=== PATIENT | male | born 1940 | race Caucasian/White ===

== ENCOUNTER 2020-06-17 14:44 | Emergency (ER) | payer OTHER, BC ==
[2020-06-17 14:55] VITALS: BMI 29.2
[2020-06-17 17:02] LABS: BASO % 0.5 % (0-2.0); EOS % 0.5 % (0-4.5); HEMOGLOBIN 13.7 GM/dL (11.7-16.9); LYMPH % 36.9 % (8-40); MCH 30.7 pg (25.7-33.7); MCHC 33.3 g/dl (32.0-35.9); MEAN CELL VOLUME 92.1 fl (80-96); MEAN PLT VOLUME 8.5 fl (7.5-11.1); MONO % 7.4 % (3.8-10.2); NEUT % 54.7 % (42.8-82.8); PLATELET COUNT 225 K/MM3 (134-434); RBC 4.45 M/mm3 (4.00-5.60); RDW 13.7 % (11.9-15.9); WHITE BLOOD COUNT 5.9 K/mm3 (4.0-10.0)
[2020-06-17 17:12] LABS: INR 3.06 (0.83-1.09); PROTHROMBIN TIME (PATIENT) 36.4 SEC (9.7-13.0)
[2020-06-17 17:15] LABS: ACTIVATED PTT 46.7 SECONDS (25.2-36.5)
[2020-06-17 17:20] LABS: POTASSIUM 4.1 mmol/L (3.5-5.1)
[2020-06-17 17:21] LABS: CALCIUM 8.8 mg/dL (8.5-10.1)
[2020-06-17 17:22] LABS: ALBUMIN 4.4 g/dl (3.4-5.0)
[2020-06-17 17:27] LABS: BILIRUBIN,TOTAL 0.4 mg/dL (0.2-1); BLOOD UREA NITROGEN 20.5 mg/dL (7-18); CREATININE 0.8 mg/dL (0.55-1.3); TOT PROT 7.3 g/dl (6.4-8.2)
[2020-06-17 19:27] LABS: EPI CELLS 2 /uL (0-25.1); HYALINE CASTS 10 /uL (0-3.1); URINE APPEARANCE CLOUDY; URINE BACTERIA 3 /uL (0-1359); URINE BILIRUBIN NEGATIVE (NEGATIVE); URINE COLOR ORANGE; URINE GLUCOSE (UA) NEGATIVE (NEGATIVE); URINE KETONE NEGATIVE (NEGATIVE); URINE LEUK ESTERASE 1+ (NEGATIVE); URINE NITRITE NEGATIVE (NEGATIVE); URINE PROTEIN 3+ (NEGATIVE); URINE RBC 6096 /uL (0-23.9); URINE UROBILINOGEN 0.2 mg/dL (0.2-1.0); URINE WBC 5 /uL (0-25.8)
[2020-06-17 20:05] VITALS: BP 146/73; PULSE 58
== END 2020-06-17 20:05 | disposition home or self-care (01) ==
LOC: JER 14:44 → JERBED 16:38 → UNDOADMIN 16:38 → JER 20:05
DX: K62.5 Hemorrhage of anus and rectum (principal); R31.0 Gross hematuria
CPT/HCPCS: 36415; 71045-TC-FY; 74176-TC; 80053; 81003; 85025; 85610; 85730; 86850; 86900; 86901; 87086; 93005; 93010; 99285-25; C9803; U0003

== ENCOUNTER 2021-01-21 20:01 | Emergency (ER) | payer OTHER, BC ==
[2021-01-21 20:10] VITALS: BP 118/69; PULSE 82; BMI 29.2
[2021-01-21] MEDS ORDERED: SODIUM CHLORIDE 1,000 ML IV ONE (20:11)
[2021-01-21] MEDS ORDERED: ACETAMINOPHEN 1000 MG/100 ML VIAL IVPB ONE (20:11)
[2021-01-21] MEDS ORDERED: ACETAMINOPHEN INJECTION 100 ML IVPB ONE (20:32)
[2021-01-21 20:35] LABS: HEMOGLOBIN 14.5 GM/dl (11.7-16.9); MCH 31.8 pg (25.7-33.7); MCHC 34.5 g/dl (32.0-35.9); MEAN CELL VOLUME 92.2 fl (80-96); MEAN PLT VOLUME 7.8 fl (7.5-11.1); PLATELET COUNT 211 10^3/uL (134-434); RBC 4.56 M/mm3 (4.00-5.60); RDW 13.2 % (11.9-15.9)
[2021-01-21 20:52] LABS: ALK PHOS 62 U/L (45-117); ANION GAP 13 MMOL/L (8-16); BILIRUBIN,TOTAL 1.1 mg/dl (0.2-1); CALCIUM 8.3 mg/dl (8.5-10); CHLORIDE 100 mmol/L (98-107); CO2 25 mmol/L (21-32); CREATININE 1.1 mg/dl (0.55-1.3); GLUCOSE,RANDOM 154 mg/dl (74-106); SGOT/AST 26 U/L (15-37); SGPT/ALT 21 U/L (13-61); SODIUM 138 mmol/L (136-145); TOT PROT 6.9 g/dl (6.4-8.2)
[2021-01-21 20:54] LABS: URIC ACID CRYSTALS FEW /hpf (NONE SEEN)
[2021-01-21 21:45] LABS: PLATELET ESTIMATE ADEQUATE
[2021-01-21 22:35] VITALS: TEMP 99.6
== END 2021-01-21 22:35 | disposition home or self-care (01) ==
LOC: FER 20:01
PROC: 3E033GC Introduction of Other Therapeutic Substance into Peripheral Vein, Percutaneous Approach (ICD-10-PCS; principal; 2021-01-21)
DX: B34.9 Viral infection, unspecified (principal)
CPT/HCPCS: 36415; 71045-TC-FY; 80053; 81003; 81015; 82550; 83605; 84484; 85025; 87040; 87086; 87186; 93005; 99285-25; C9803; J0131; U0003; U0005

== ENCOUNTER 2021-07-02 11:08 | Emergency (ER) | payer OTHER, BC ==
[2021-07-02 11:14] VITALS: BP 134/71; PULSE 57; TEMP 97.7; BMI 27.7
== END 2021-07-02 12:50 | disposition home or self-care (01) ==
LOC: FER 11:08
PROC: 2W3CX1Z Immobilization of Right Lower Arm using Splint (ICD-10-PCS; principal; 2021-07-02)
DX: S69.91XA Unspecified injury of right wrist, hand and finger(s), initial encounter (principal); V18.0XXA Pedal cycle driver injured in noncollision transport accident in nontraffic accident, initial encounter
CPT/HCPCS: 73110-TC-RT-FY; 73130-TC-RT-FY; 99285-25

== ENCOUNTER 2022-05-04 04:08 | Day surgery (SDC) | payer OTHER, BC ==
[2022-05-02 14:24] VITALS: BMI 32.9
[2022-05-04] MEDS ORDERED: BSS (NA/CA/MG/K) BALANCED SALT SOLUTION OPHTH SOLN 15 ML BOTTLE ONE (07:04)
[2022-05-04] MEDS ORDERED: TETRACAINE 0.5% OPHTH SOLN 2 ML BOTTLE ONE (07:04)
[2022-05-04] MEDS ORDERED: EPINEPHrine/PF 1 MG/1 ML (1:1,000) AMPULE ONE (07:04)
[2022-05-04] MEDS ORDERED: LIDOCAINE HCL/PF 1% SDV 5ML VIAL ONE (07:04)
[2022-05-04] MEDS ORDERED: POVIDONE-IODINE 5% OPHTHALMIC PREP 30 ML SOLUTION ONE (07:05)
[2022-05-04] MEDS ORDERED: TOBRAMYCIN/DEXAMETHASONE OPHTH. OINTMENT 1 TUBE ONE (07:05)
[2022-05-04] MEDS ORDERED: KETOROLAC TROMETHAMINE 0.5% EYE DROP 1 DROP DROPS ONE (07:09)
[2022-05-04] MEDS ORDERED: TROPICAMIDE 1% OPHTH SOLN 15 ML BOTTLE ONE (07:09)
[2022-05-04] MEDS ORDERED: PHENYLEPHRINE 2.5% OPTHALMIC DROP 2ML BOTTLE ONE (07:09)
[2022-05-04] MEDS ORDERED: CIPROFLOXACIN HCL 0.3% OPHTH 2.5ML BOTTLE ONE (07:09)
[2022-05-04] MEDS ORDERED: CHONDROITIN SU A/HYALUR SOD 1 KIT ONE (07:13)
[2022-05-04] MEDS ORDERED: CIPROFLOXACIN HCL 0.3% OPHTH 2.5ML BOTTLE OD ONE ×3 (07:15→07:45)
[2022-05-04] MEDS ORDERED: TROPICAMIDE 1% OPHTH SOLN 15 ML BOTTLE OD ONE ×3 (07:15→07:45)
[2022-05-04] MEDS ORDERED: KETOROLAC TROMETHAMINE 0.5% EYE DROP 1 DROP DROPS OD ONE ×3 (07:15→07:45)
[2022-05-04] MEDS ORDERED: PHENYLEPHRINE 2.5% OPHTH SOLN 15 ML BOTTLE OD ONE ×3 (07:15→07:45)
[2022-05-04 07:34] VITALS: RESP 18
[2022-05-04] MEDS ORDERED: MIDAZOLAM HCL 2 MG/2 ML SINGLE DOSE VIAL ONE (08:28)
[2022-05-04] MEDS ORDERED: ACETAMINOPHEN 325 MG TABLET (FP) PO PRN (08:30)
[2022-05-04] MEDS ORDERED: CIPROFLOXACIN HCL 0.3% OPHTH 2.5ML BOTTLE OP SCH (08:30)
[2022-05-04] MEDS ORDERED: KETOROLAC TROMETHAMINE 0.5% EYE DROP 1 DROP DROPS OP SCH (08:30)
[2022-05-04] MEDS ORDERED: TROPICAMIDE 1% OPHTH SOLN 15 ML BOTTLE OP SCH (08:30)
[2022-05-04] MEDS ORDERED: PHENYLEPHRINE 2.5% OPHTH SOLN 15 ML BOTTLE OP SCH (08:30)
[2022-05-04] MEDS ORDERED: TETRACAINE 0.5% OPHTH SOLN 2 ML BOTTLE OD ONE (08:45)
[2022-05-04] MEDS ORDERED: POVIDONE-IODINE 5% OPHTHALMIC PREP 30 ML SOLUTION OD ONE (08:47)
[2022-05-04] MEDS ORDERED: BSS (NA/CA/MG/K) BALANCED SALT SOLUTION OPHTH SOLN 15 ML BOTTLE OD ONE (08:53)
[2022-05-04] MEDS ORDERED: LIDOCAINE HCL 1% PRESERVATIVE FREE - 30ML VIAL IO ONE (08:55)
[2022-05-04] MEDS ORDERED: CHONDROITIN SU A/HYALUR SOD 1 KIT IO ONE (08:56)
[2022-05-04] MEDS ORDERED: EPINEPHrine/PF 1 MG/1 ML (1:1,000) AMPULE SQ ONE (09:00)
[2022-05-04] MEDS ORDERED: TOBRAMYCIN/DEXAMETHASONE OPHTH. OINTMENT 1 TUBE OD ONE (09:13)
[2022-05-04 10:00] VITALS: BP 122/60
[2022-05-04 10:01] VITALS: PULSE 56; TEMP 97
== END 2022-05-04 09:55 | disposition home or self-care (01) ==
LOC: JASU-SURG 04:08
PROVIDERS: ATTEND Ophthalmology
PROC: 08RJ3JZ Replacement of Right Lens with Synthetic Substitute, Percutaneous Approach (ICD-10-PCS; principal; 2022-05-04 08:30)
DX: H25.11 Age-related nuclear cataract, right eye (principal)
CPT/HCPCS: V2632

== ENCOUNTER 2024-06-13 22:08 | Emergency (ER) | payer OTHER, BC ==
[2024-06-13 22:19] VITALS: BP 130/75; PULSE 56; RESP 18; TEMP 97.3; BMI 29.5
== END 2024-06-13 23:50 | disposition home or self-care (01) ==
LOC: FER 22:08
DX: R07.89 Other chest pain (principal)
CPT/HCPCS: 36415; 82550; 84484; 93005; 99283-25